=== PATIENT | male | born 1965 | race African-American/Black ===

== ENCOUNTER 2016-09-10 08:52 | Emergency (ER) | payer MEDICAID, OTHER ==
[~2016-09-10] VITALS: Ht 170.2 cm; Wt 68.0 kg
[~2016-09-10 08:52] MED LIST: IBUPROFEN800 MG ORAL; NKM
[2016-09-10 09:25] VITALS: BP 155/89
[2016-09-10] MEDS ORDERED: TRAMADOL HCL50 MG ORAL (09:46)
--- NOTE | 2016-09-10 09:50 | Emergency Room Report ---
History of Present Illness General Chief Complaint: Lower Back Pain or Injury Source: Patient Present Illness HPI Patient reports pain in the lower sacral area. X3 days. States he did lifting at home over the weekend as well as helping a friend move. He also does work at a warehouse with some lifting daily. He denies a fall or a trip or any type of prior injury or surgery to the area. States the pain was more severe yesterday and he had difficulty getting up going to work, he called off that day. He's been taking Naprosyn. He denies numbness, tingling, dysuria, incontinence, or urinary symptoms. He has no history of surgery in the region or other history of trauma in that area. Came in for evaluation. Allergies: Coded Allergies: No Known Allergies (Unverified , 10/08/14) Patient History Past Medical History: none Social History: Denies: alcohol use, smoking Immunizations: UTD Reviewed Nursing Documentation: PMH: Agreed Nursing Documentation-PMH Hx Hypertension: Yes Review of Systems Musculoskeletal: Reports: back pain, muscle stiffness All Other Systems: negative except mentioned in HPI Physical Exam Vital Signs Date Time Temp Pulse Resp B/P Pulse Ox O2 Delivery O2 Flow Rate FiO2 09/10/16 09:14 98.8 85 16 155/89 100 Room Air Sp02 EP Interpretation: reviewed, normal General Appearance: normal inspection, well appearing, no apparent distress, alert Head: atraumatic Eyes: bilateral eye normal inspection ENT: normal ENT inspection, hearing grossly normal, normal voice Neck: normal inspection, full range of motion, supple, no bony tend Respiratory: normal inspection, lungs clear, normal breath sounds, no respiratory distress, no retraction, no wheezing Cardiovascular #1: regular rate, rhythm, no edema Gastrointestinal: normal inspection, normal bowel sounds, non tender, soft, no guarding, no hernia Genitourinary: no CVA tenderness Musculoskeletal: back normal, normal range of motion, tender - at this sacral, mid region of the sacrum, no fluctuence, no sign of redness or deformity. Neurologic: normal inspection, alert, responsive, speech normal Psychiatric: normal inspection, judgement/insight normal, mood/affect normal Skin: normal inspection, normal color, no rash Medical Decision Making Diagnostic Impression: Primary Impression: Unspecified injury of lower back, sequela Additional Impression: sacral pain/strain ER Course Generally healthy gentleman, without prior medical history with some sacral pain. Exam does not demonstrate anything to suggest, vital cyst or abscess. No central nervous symptoms to suggest disc disease or history of diverticulitis or significant trauma. We'll obtain screening sacral films to look for a type of mass or fractures. Provide pain reliever as well as note for a few days is likely a sacral strain. Patient understands and agrees with plan of care. Other X-Ray Diagnostic Results Other X-Ray Diagnostic Results : Date: Sep 10, 2016 Time: 09:50 EP Interpretation: Yes Findings: no fractures, no dislocation, other - no obvious fracture on my inital impression, radiology read pending Number of Views: 2 Last Vital Signs Date Time Temp Pulse Resp B/P Pulse Ox O2 Delivery O2 Flow Rate FiO2 09/10/16 09:14 98.8 85 16 155/89 100 Room Air Disposition: HOME, SELF-CARE Condition: Stable Scripts Tramadol Hcl* (ULTRAM*) 50 Mg Tablet 50 MG ORAL Q6H Y for For Pain, #15 TAB 0 Refills Prov: John Tapia MD 09/10/16 Departure Forms: Return to Work Return to Work in (Days): 3 Return to Work Date: Sep 13, 2016 Other Restrictions: reduced lifting weigths over 25 pounds for one week Patient Instructions: Lumbosacral Strain, Back Pain, Adult John Tapia MD Sep 10, 2016 09:50
[2016-09-10 11:12] VITALS: BP 155/89
--- NOTE | 2016-09-10 11:37 | Diagnostic Imaging Report ---
Indications: Sacrococcygeal pain following heavy lifting Technique: 3 views sacrum and coccyx. Findings: Comparison: None No fracture, dislocation, joint space widening , lytic destruction, periosteal reaction , surrounding soft tissue swelling/foreign body/gas, or other acute changes are identified. Lower lumbar disc spaces demonstrate varying degrees of narrowing with marginal osteophyte formation. IMPRESSION: No evidence of acute injury. Degenerative spondylosis
== END 2016-09-10 11:12 | disposition home or self-care (01) ==
LOC: EMR 09:58
DX: S39.92XD Unspecified injury of lower back, subsequent encounter (principal); X58.XXXD Exposure to other specified factors, subsequent encounter; I10 Essential (primary) hypertension
CPT/HCPCS: 72220; 99283

== ENCOUNTER 2016-09-22 07:01 | Emergency (ER) | payer OTHER ==
[~2016-09-22] VITALS: Ht 170.2 cm; Wt 70.3 kg
[~2016-09-22 07:01] MED LIST changes: +TRAMADOL HCL50 MG ORAL
[2016-09-22 07:39] VITALS: BP 175/97
--- NOTE | 2016-09-22 08:37 | Emergency Room Report ---
History of Present Illness General Chief Complaint: Skin Rash/Abscess Source: Patient Present Illness HPI 51 YO M right-handed with concern for foreign body in right thumb palmar aspect for 8 months. Patient works in [employer]. States he thought he had a splinter but he "dug around and cut it open" and didnt see a FB. Also applied "corn remover" liquid multiple times for the "callus." Able to work, " sometimes it bothers him." Denies fever/chills, rash to area or reduced ROM to thumb. Asking for xray to "make sure" there's no FB. Allergies: Coded Allergies: No Known Allergies (Unverified , 10/08/14) Patient History Past Medical History: none Past Surgical History: none Pertinent Family History: none Social History: Denies: alcohol use, drug use, smoking Immunizations: UTD Reviewed Nursing Documentation: PMH: Agreed, PSxH: Agreed Nursing Documentation-PMH Hx Hypertension: Yes Review of Systems All Other Systems: negative except mentioned in HPI Physical Exam Vital Signs Date Time Temp Pulse Resp B/P Pulse Ox O2 Delivery O2 Flow Rate FiO2 09/22/16 07:35 98.8 68 16 175/97 100 Room Air Sp02 EP Interpretation: reviewed, normal General Appearance: normal inspection, well appearing, no apparent distress, alert Head: atraumatic ENT: normal ENT inspection, hearing grossly normal, normal voice Neck: normal inspection, full range of motion, supple, no bony tend Respiratory: normal inspection, lungs clear, normal breath sounds, no respiratory distress, no retraction, no wheezing Cardiovascular #1: regular rate, rhythm, no edema Gastrointestinal: normal inspection, normal bowel sounds, non tender, soft, no guarding, no hernia Musculoskeletal: other - Right hand: thumb on palmar aspect with 1.2cm area of callus; no palpable FB under callus. No sign of infection. Neurologic: normal inspection, alert, oriented x3, responsive, document controller III-XII nml as tested, motor strength/tone normal, speech normal Psychiatric: normal inspection, judgement/insight normal, mood/affect normal Skin: normal inspection, normal color, no rash Medical Decision Making ER Course Xray does not show FB on my review VSS. Afebrile No sign of infection Advised patient to STOP self-cutting area and to just leave it alone Unlikely FB is retained after 8 months PMD followup DC home Other X-Ray Diagnostic Results Other X-Ray Diagnostic Results : X-Ray Ordered: right hand EP Interpretation: Yes Findings: no fractures, no dislocation, no soft tissue swelling, other - No FB Number of Views: 3 Last Vital Signs Date Time Temp Pulse Resp B/P Pulse Ox O2 Delivery O2 Flow Rate FiO2 09/22/16 07:39 98.8 68 16 175/97 100 Room Air Status: improved Disposition: HOME, SELF-CARE Referrals: [facility] (PCP) ANN JASON M.D. Sep 22, 2016 08:37
[2016-09-22 08:43] VITALS: BP 175/97
--- NOTE | 2016-09-22 10:44 | Diagnostic Imaging Report ---
Indication: Pain Comparison: None Findings: 4 views of the right thumb show no fracture, malalignment or radiopaque foreign body. Impression: Negative exam
== END 2016-09-22 08:43 | disposition home or self-care (01) ==
LOC: EMR 07:50
DX: L84 Corns and callosities (principal); I10 Essential (primary) hypertension
CPT/HCPCS: 99283

== ENCOUNTER 2019-07-28 07:03 | Emergency (ER) | payer OTHER ==
[~2019-07-28] VITALS: Ht 170.2 cm; Wt 68.5 kg
[2019-07-28 07:15] VITALS: BP 134/97
--- NOTE | 2019-07-28 07:15 | NUR ---
ED Nurse Note: Pt ambulated to ED with the c/o flu-like symptoms. Pt is AOx4, no signs of respiratory distress. Placed on bed, ERMD on bedside.
--- NOTE | 2019-07-28 07:28 | Emergency Room Report ---
History of Present Illness General Chief Complaint: Flu Like Symptoms Source: Patient Present Illness [facility] Disclaimer: Please note that this report is being documented using [employer] technology. This can lead to erroneous entry secondary to incorrect interpretation by the dictating instrument. HPI: Otherwise healthy 54-year-old male presents for evaluation of multiple complaints. He notes 1 week of cough, nasal congestion, chest congestion, sore throat, decreased appetite, subjective fevers and night sweats. Reports diffuse myalgias and overall fatigue. Believes he had a flulike illness though does report feeling better over the past few days. Denies vomiting or diarrhea. Fevers are resolving. He has been treating himself with over-the- counter cold and flu medications. His cough is improving. He came in for evaluation as his symptoms have persisted though they do appear to be getting better. He also comes with his who is here for an unrelated complaint. Otherwise no sick contacts. Did not receive a flu vaccine this year. No other complaints at this time. PMH: Denies PSH: Denies Allergies: Denies Social Hx: Denies drug or alcohol abuse Allergies: Coded Allergies: No Known Allergies (Unverified , 10/08/14) Nursing Documentation-PMH Past Medical History: No History, Except For Hx Hypertension: Yes Review of Systems All Other Systems: negative except mentioned in HPI Physical Exam Vital Signs Date Time Temp Pulse Resp B/P (MAP) Pulse Ox O2 Delivery O2 Flow Rate FiO2 07/28/19 07:10 99.3 92 17 134/97 (109) 99 Room Air General: Awake and alert, no acute distress HEENT: NC/AT. EOMI. noninjected sclera, no pharyngeal erythema or edema. Uvula midline. Neck: Supple, trachea midline, no lymphadenopathy Cardiovascular: RRR. S1 and S2 normal. No murmur appreciated Resp: Normal work of breathing. No cough, wheezing or crackles appreciated Abdomen: Abdomen is soft, nondistended. Nontender Skin: Intact. No abrasions, laceration or rash over the exposed skin MSK: Normal tone and bulk. Moving all extremities. No obvious deformity. Neuro: Awake and alert. Mentating appropriately. Medical Decision Making Diagnostic Impression: Primary Impression: Influenza-like symptoms Additional Impressions: Myalgia Chest congestion Nasal congestion ER Course 54-year-old male presents for evaluation of flulike symptoms for approximately 1 week. He arrives with stable vital signs, no acute distress, breathing easily. Physical exam is reassuring. Symptoms appear to be improving and he is appropriately treating himself with [id number] cold and flu medication such as NyQuil and DayQuil. He will be discharged home with continued symptomatic treatment. Does not require emergent labs or imaging at this time. Will follow up with his PMD. Stressed hand hygiene, the importance of the flu vaccine, need for follow-up and reasons to return to the emergency department. He understands and agrees with this treatment plan will be discharged home. Last Vital Signs Date Time Temp Pulse Resp B/P (MAP) Pulse Ox O2 Delivery O2 Flow Rate FiO2 07/28/19 07:10 99.3 92 17 134/97 (109) 99 Room Air Disposition: HOME, SELF-CARE Condition: Stable Scripts No Active Prescriptions or Reported Meds Referrals: [facility] (PCP) Patient Instructions: Influenza, Adult Additional Instructions: You were evaluated in the emergency department after a possible flu like illness. Continue to drink plenty of fluids, eat regular meals, get good rest and perform proper handwashing techniques and sterilization around her house to prevent spreading of infection. Follow-up with 1 of the clinics listed here in your discharge paperwork or your primary care provider. Continue your cold and flu medications as you have been. Return with any new or worsening symptoms. Kiran Crump MD Jul 28, 2019 07:28
--- NOTE | 2019-07-28 07:33 | NUR ---
ER DISCHARGE NOTE: Pt is cleared to be discharged per ERMD, pt is aox4, on room air, VSS. pt was given dc and prescription instructions, pt able to verbalized understanding, pt id band and iv site removed without complications. pt is able to ambulate with steady gait. pt took all belongings.
[2019-07-28 07:35] VITALS: BP 130/87
== END 2019-07-28 07:35 | disposition home or self-care (01) ==
LOC: EMR 07:23
DX: J11.1 Influenza due to unidentified influenza virus with other respiratory manifestations (principal); M79.10 Myalgia, unspecified site; R09.89 Other specified symptoms and signs involving the circulatory and respiratory systems; R09.81 Nasal congestion; I10 Essential (primary) hypertension
CPT/HCPCS: 99282

== ENCOUNTER 2020-10-20 09:40 | Emergency (ER) | payer OTHER ==
[~2020-10-20] VITALS: Ht 170.2 cm; Wt 66.7 kg
[2020-10-20] MEDS ORDERED: IBUPROFEN600 M1 ORAL (09:53)
--- NOTE | 2020-10-20 10:11 | Emergency Room Report ---
History of Present Illness General Chief Complaint: Pain Source: Patient Present Illness HPI Patient presents emergency department today complaint left shoulder pain. Patient states that he was lifting heavy things and climbing ladders and felt that he hurt his left shoulder. He states that he has some pain with movement. But it is improved with Motrin and has good range of motion. Denies any numbness or tingling. Denies any traumatic injury. States that he does not remember the time of onset rather it seems to start insidiously overnight after a heavy work day. Symptoms noted to mild to moderate. No other modifying factors. No other associated signs and symptoms. No other complaints were noted. Allergies: Coded Allergies: No Known Allergies (Unverified , 10/08/14) COVID-19 Screening Contact w/high risk pt: No Recent Travel to affected area: No Experienced COVID-19 symptoms?: No COVID-19 Testing performed [employer]: No COVID-19 Screening: Negative COVID-19 COVID-19 Testing Source: job Patient History Past Medical History: none Past Surgical History: none Pertinent Family History: none Social History: Denies: smoking, alcohol use, drug use Reviewed Nursing Documentation: PMH: Agreed; PSxH: Agreed Nursing Documentation-PMH Past Medical History: No Stated History Hx Hypertension: Yes Review of Systems All Other Systems: negative except mentioned in HPI Physical Exam Vital Signs Date Time Temp Pulse Resp B/P (MAP) Pulse Ox O2 Delivery O2 Flow Rate FiO2 10/20/20 09:57 Room Air Sp02 EP Interpretation: reviewed, normal General Appearance: normal inspection, well appearing, no apparent distress, alert Head: atraumatic Eyes: bilateral eye normal inspection ENT: normal ENT inspection, hearing grossly normal, normal voice Neck: normal inspection, full range of motion, supple, no bony tend Respiratory: normal inspection, lungs clear, normal breath sounds, no respiratory distress, no retraction, no wheezing Cardiovascular #1: regular rate, rhythm, no edema Gastrointestinal: normal inspection, normal bowel sounds, non tender, soft, no guarding, no hernia Genitourinary: no CVA tenderness Musculoskeletal: normal inspection, back normal, normal range of motion Neurologic: alert, responsive, speech normal, normal inspection Psychiatric: normal inspection, judgement/insight normal, mood/affect normal Skin: no rash Medical Decision Making Diagnostic Impression: Primary Impression: Left shoulder strain Additional Impression: Pain ER Course Patient presents emergency department today complaint left shoulder strain. Differential considerations include fracture dislocation versus strain. Patient's exam is complete benign. Patient has good range of motion. Therefore no x-rays are indicated this time. Patient was given prescription for Motrin some days off work recommend close outpatient follow-up as needed. Outpatient imaging as needed. Patient is advised to follow up with primary doctor in 2-3 days and return the emergency room for any worsening symptoms and as needed. Last Vital Signs Date Time Temp Pulse Resp B/P (MAP) Pulse Ox O2 Delivery O2 Flow Rate FiO2 10/20/20 10:03 Room Air Status: improved Disposition: HOME, SELF-CARE Condition: Stable Scripts Ibuprofen* (MOTRIN*) 600 Mg Tablet 600 MG ORAL Q6H PRN for FOR PAIN, #20 TAB 0 Refills Prov: Gus Jennings MD 10/20/20 Referrals: [facility] (PCP) Departure Forms: Return to Work Return to Work Date: Oct 23, 2020 Patient Instructions: Shoulder Sprain Gus Jennings MD Oct 20, 2020 10:11
== END 2020-10-20 12:00 | disposition home or self-care (01) ==
LOC: EMR 10:05
DX: S46.912A Strain of unspecified muscle, fascia and tendon at shoulder and upper arm level, left arm, initial encounter (principal); X50.0XXA Overexertion from strenuous movement or load, initial encounter; Y92.9 Unspecified place or not applicable; I10 Essential (primary) hypertension
CPT/HCPCS: 99282